=== PATIENT | male | born 1975 | race Caucasian/White ===

== ENCOUNTER 2024-06-24 10:50 | Outpatient (CLI) | payer BC, SELFPAY | END 2024-06-24 10:51 | disposition home or self-care (01) | PROVIDERS: Visit Provider Emergency Medicine | DX: R73.01 Impaired fasting glucose (principal); E66.9 Obesity, unspecified; Z68.33 Body mass index [BMI] 33.0-33.9, adult | CPT/HCPCS: 80048; 80061 ==

== ENCOUNTER 2024-07-01 09:19 | Outpatient (CLI) | payer BC, SELFPAY | END 2024-07-01 09:20 | disposition home or self-care (01) | PROVIDERS: PCP Emergency Medicine; Visit Provider Emergency Medicine | DX: R10.13 Epigastric pain (principal); R07.9 Chest pain, unspecified | CPT/HCPCS: 80076; 83690; 86140; 87338 ==

== ENCOUNTER 2025-02-09 09:13 | Outpatient (CLI) | payer BC, SELFPAY | END 2025-02-09 09:14 | disposition home or self-care (01) | LOC: LKVREF 09:13 | PROVIDERS: PCP Family Medicine; Visit Provider Family Medicine | DX: Z12.5 Encounter for screening for malignant neoplasm of prostate (principal) | CPT/HCPCS: G0103 ==